=== PATIENT | female | born 1985 | race Two or more races ===

== ENCOUNTER 2025-02-18 05:45 | Day surgery (SDC) | payer MEDICAID, SELFPAY ==
[2025-02-14 10:58] VITALS: BMI 25.4
[2025-02-14 11:54] LABS: Basophils # (Auto) 0.1 Thou/mm3 (0.0-0.2); Basophils % (Auto) 1 % (0-2.5); Eosinophils # (Auto) 0.4 Thou/mm3 (0.0-0.5); Eosinophils % (Auto) 5 % (0-10); Hematocrit 38.3 % (36.0-46.0); Hemoglobin 12.7 g/dL (12.0-16.0); Immature Granulocytes % (Auto) 0 % (0-0); Immature Granulocytes Auto 0.03 Thou/mm3 (0.00-0.00); Lymphocytes % (Auto) 29 % (10-50); Mean Corpuscular HGB Conc 33.2 g/dl (31.0-37.0); Mean Corpuscular Hemoglobin 30.7 pg (25.0-35.0); Mean Corpuscular Volume 93 fL (80-100); Monocytes # (Auto) 0.6 Thou/mm3 (0.0-0.8); Monocytes % (Auto) 9 % (0-12); Neutrophils # (Auto) 3.8 Thou/mm3 (1.8-7.7); Neutrophils % (Auto) 55 % (37-80); Nucleated Red Blood Cell % 0 /100 WBC (0); Platelet Count 256 Thou/mm3 (140-440); RDW Standard Deviation 45.7 fL (36.4-46.3); Red Blood Count 4.14 Miln/mm3 (4.00-5.20); White Blood Count 6.8 Thou/mm3 (3.6-11.0)
[2025-02-14 12:07] LABS: Alanine Aminotransferase 22 U/L (10-49); Albumin/Globulin Ratio 1.6 (1.2-2.2); Alkaline Phosphatase 77 U/L (46-116); Anion Gap 8 (7-16); Aspartate Amino Transferase 21 U/L (0-34); BUN/Creatinine Ratio 13 Ratio (12-20); Beta HCG,Quantitative < 1 mIU/mL (<5.0); Bilirubin,Total 0.5 mg/dL (0.3-1.2); Blood Urea Nitrogen 9 mg/dL (9-23); Calcium 8.9 mg/dL (8.3-10.6); Calcium (Corrected) 8.9 mg/dL (8.5-10.1); Carbon Dioxide 24.7 mMol/L (20.0-31.0); Chloride 107 mMol/L (98-107); Creatinine (Component) 0.7 mg/dL (0.6-1.3); Estimated Creatinine Clearance 92.4 mL/min (>60); Globulin 2.5 gm/dL (2.3-3.5); Glucose 103 mg/dL (74-106); Osmolality,Calculated 278 (275-295); Potassium 3.9 mMol/L (3.4-5.1); Sodium 140 mMol/L (136-145); Total Protein 6.5 gm/dL (5.7-8.2); eGFR > 60 See Note
[2025-02-14 12:10] LABS: INR 1.1 (0.9-1.3); Partial Thromboplastin Time 28.2 Seconds (22.0-36.0); Prothrombin Time 11.9 Seconds (9.0-12.2)
[2025-02-14 12:46] LABS: COVID-19 Antigen (In-House) Negative (Negative)
--- NOTE | 2025-02-17 07:53 | ESHP_ITS ---
RE: BLACK WATERS : 1985 DATE OF ADMISSION: 02/18/2025 HISTORY OF PRESENT ILLNESS: This is a 39-year-old 4, para 4 with an embedded IUD that could not be removed in the office at [facility]. So, she was referred to us. A pelvic ultrasound confirms that the IUD is in the uterine cavity in the fundal position. There are no strains at the endocervical os as they were reported to have broken off at the time she tried to have the IUD removed at the [facility]. ALLERGIES: IBUPROFEN. MEDICATIONS: 1. Xulane control patch 150 mcg/35 mcg per 24 hours transdermal patch once a week. 2. Montelukast 10 mg one p.o. daily. PAST MEDICAL HISTORY: Seasonal allergies. PAST SURGICAL HISTORY: delivery 06/2020. REVIEW OF SYSTEMS: She denies any chest pain, palpitations, cough, fever, or shortness of breath or lower extremity pain. PHYSICAL EXAMINATION: Vital Signs: Blood pressure 110/70 mmHg, heart rate 88, respirations 18, temperature 98.6, weight 136 pounds. HEENT: Oropharynx and sclerae are clear. Lungs: Clear to auscultation bilaterally. Heart: Regular rate and rhythm. Abdomen: Old Pfannenstiel scar noted. Extremities: Nontender. Skin: No rashes or lesions. Neurological exam: No focal deficit. ASSESSMENT: Embedded intrauterine device. PLAN: Hysteroscopy and removal of IUD under anesthesia. Informed consent was obtained. The patient was made aware of the risks, complications, alternatives, and benefits of the proposed procedure. She agrees. She is aware of the risk of injury to bowel, bladder, uterus, adjacent organs, pulmonary embolism, deep vein thrombosis, pelvic infection, reoperation to repair injury to internal organs, anesthesia complications, the possibility that a laparotomy needs to be performed to repair organs and control bleeding and the possibility that the procedure is not able to be completed due to severe adhesions or technical difficulties. She verbalized understanding and agrees to proceed with the procedure with an understanding of the risks and complications. DT: 17:13:08 TT: 19:46:00 Ref: [id number] - TID: [id number] [facility]
[2025-02-18] VITALS (8 sets, daily range): BP systolic 106–123; BP diastolic 58–73; PULSE 63–80; RESP 13–18; TEMP 36.2–36.9; O2SAT 98–100; BMI 30.4
--- NOTE | 2025-02-18 08:24 | SUR.PHASEI ---
0824 Patient arrived to recovery resting comfortably in [facility], on oxygen 10L via oxy mask, breathing unlabored, vital signs stable, dressing intact to vaginal area; peripad, no bleeding noted, report received from Sarah RN/Adán RN and Andrae PERAZA/Samra SRNA
--- NOTE | 2025-02-18 08:34 | PD.GYNPROC ---
Operative Note - HOSPITAL SECRETARY Procedure Date of procedure: 02/18/25 Procedure Performed: Hysteroscopy Indication: IUD strings missing Pre-Op diagnosis: IUD at the fundus of the uterus by preoperative transvaginal pelvic sonogram Post-Op diagnosis: IUD at the fundus of the uterus by preoperative transvaginal pelvic sonogram No IUD seen in the uterine cavity Anesthesia type: General Procedure description: Hysteroscopy Findings: Intrauterine cavity with scar tissue and no IUD seen Unable to visualize the cornua of the uterus Unable to visualize the IUD Complications: none Narrative: After proper informed consent was obtained and the patient made aware the risks complications alternatives and benefits of the proposed procedure she was to the operating room where she underwent induction of general anesthesia. She was placed in the dorsolithotomy position, she was prepped and draped in the usual sterile fashion, a timeout was performed, a bivalve speculum was placed in the vagina, a single-toothed tenaculum was used to grasp the anterior lip of the cervix the endocervix was stenotic and unable to be dilated with a dilator so the 3 mm hysteroscope was utilized to visualize the endocervix and uterine cavity. The uterine cavity was visualized and the cornua were scarred and tubal ostia nonvisualized. The endocervix and uterine cavity was absent of any polyps or submucous myomas. The hysteroscope was removed from the uterine cavity. There was no bleeding at the end of the procedure. All instruments were removed from the vagina. She was reversed from general anesthesia in the supine position. And she was transferred to the recovery room in stable condition. I discussed with the patient's the nature of her condition and the intraoperative findings including the fact that we could not find the intrauterine device in the uterine cavity and the plan is to repeat a pelvic ultrasound in the office in 1 week and discuss plan of care. Surgical staff Andrae Hughes CRNA Operation Date: 02/18/25 07:30 <No data on this case meets the specified criteria> Diagnosis Discharge Diagnosis (1) Retained intrauterine contraceptive device (IUD): Status: Acute (2) Asherman's syndrome: Status: Acute Problem List Completed Was Problem List Reviewed/Reconciled?: No
--- NOTE | 2025-02-18 09:15 | SUR.PHASEII ---
0915 Patient meets discharge criteria from recovery, awake and alert, breathing unlabored, vital signs stable, denies pain, dressing intact; no bleeding noted, drinking fluids; denies nausea, patient assisted with dressing into her clothing by her , discharge instructions given with the assistance of the telephone vegetable farmworker Tiago ID#[id number] to patient and her , signed discharge instructions. Patient given all her belongings prior to discharge, transported via wheelchair and left in a private vehicle.
== END 2025-02-18 09:15 | disposition home or self-care (01) ==
PROVIDERS: Anesthesiology; PCP Student in an Organized Health Care Education/Training Program; Referring Provider Specialist; Visit Provider Specialist
PROC: 0UJD8ZZ Inspection of Uterus and Cervix, Via Natural or Artificial Opening Endoscopic (ICD-10-PCS; CPT 58555; principal; 2025-02-18 07:30)
DX: T83.32XA Displacement of intrauterine contraceptive device, initial encounter (principal); N85.6 Intrauterine synechiae
CPT/HCPCS: 58555; 36415; 80053; 84702; 85025; 85610; 85730; 86850; 86900; 86901; 87811; A4217; A4649; J0131; J0690; J1100; J2250; J2371; J2405; J2704; J3010; J3490